=== PATIENT | male | born 1995 | race Caucasian/White ===

== ENCOUNTER 2016-09-21 19:12 | Emergency (ER) | payer OTHER ==
--- NOTE | ~2016-09-21 | CT2 ---
[facility] A Service of [facility] [place] RADIOLOGY TEXT RESULTS PATIENT: ARCHANA BRITO LOCATION: SED : [birth year] UNIT #: [id number] AGE: [address]: Danyelle Olmedo SEX: M ORDER DR: [id number] [address] [address] [id number] E MR#: [id number] Acc #: [id number] NAME: ARCHANA BRITO : 1995 SEX: M STUDY DATE/TIME: 09/21/2016 21:13 UNIT: SED ROOM: STUDY DESCRIPTION: CT Abd and Pelv W Cont Attending Physician: Danyelle Olmedo Pa-C Ordering Physician: Danyelle Olmedo Pa-C Primary Care Physician: Primary Care Physician No MEDICAL IMAGING REPORT This report is preliminary unless electronic signature is present. EXAM CT abdomen and pelvis with IV contrast HISTORY Low abdomen pain and testicular pain for 3 days. No injury. This CT exam was performed with one or more of the following radiation dose reduction techniques: automatic exposure control, adjustment of mA and/or kV according to patient size, and iterative reconstruction. FINDINGS CT abdomen and pelvis was performed with IV contrast. CT ABDOMEN: The liver, gallbladder, spleen, pancreas, right kidney, and adrenal glands are normal. There is a 2 mm nonobstructing stone in the upper pole of the left kidney. No hydronephrosis. No perinephric stranding. Normal caliber abdominal aorta. No bowel dilatation. CT PELVIS: Normal appendix. No free fluid. No adenopathy. No bowel dilatation. Urinary bladder is normal. IMPRESSION 1. No acute findings in the abdomen or pelvis. 2. No urinary obstruction or bowel obstruction. 3. A 2 mm nonobstructing stone in the left kidney. Dictated by... Clyde Diaz M.D. THIS IS AN ELECTRONICALLY VERIFIED REPORT [facility] A Service of [facility] [place] RADIOLOGY TEXT RESULTS PATIENT: ARCHANA BRITO LOCATION: SED : 93 UNIT #: [id number] AGE: [address]: Danyelle Olmedo SEX: M ORDER DR: Clyde Diaz M.D. at 09/21/2016 11:32 PM SCOTT/hussein TD: 09/21/2016 22:41 JOB #: [id number] MEDICAL IMAGING REPORT Page 1 of 1
--- NOTE | ~2016-09-21 | US113 ---
[facility]. [facility] A Service of [facility] [place] [facility] RADIOLOGY TEXT RESULTS PATIENT: ARCHANA BRITO LOCATION: SED : 93 UNIT #: [id number] AGE: [address]: Danyelle Olmedo SEX: M ORDER DR: [id number] [address] [address] [id number] E MR#: [id number] Acc #: [id number] NAME: ARCHANA BRITO : 1995 SEX: M STUDY DATE/TIME: 09/21/2016 21:06 UNIT: SED ROOM: STUDY DESCRIPTION: US Scrotal Duplex Complete Attending Physician: Danyelle Olmedo Pa-C Ordering Physician: Yariel Cullen M.D. Primary Care Physician: Primary Care Physician No MEDICAL IMAGING REPORT This report is preliminary unless electronic signature is present. EXAM Testicular ultrasound, 09/21/2016 HISTORY 21-year-old male with left testicular pain for 2 days. No specific injury. COMPARISON None. FINDINGS Real-time arevalo-scale and color Doppler imaging of the scrotum was performed. Both testicles are normal in size and echogenicity. No intratesticular or extratesticular masses. Normal vascular flow in both testicles. No evidence of torsion. Bilateral epididymis within normal limits. IMPRESSION Normal testicular ultrasound. Dictated by... Silvio Anaya M.D. THIS IS AN ELECTRONICALLY VERIFIED REPORT Silvio Anaya M.D. at 09/21/2016 10:56 PM ANIA/johnny TD: 09/21/2016 22:38 JOB #: [id number] MEDICAL IMAGING REPORT Page 1 of 1
[~2016-09-21 19:12] MED LIST: ATARAX PO; CILOXAN 0.3% O2.5 ML OD; DICLOFENAC PO; MEDROL; MEDROL PO; NO MEDICATIONS; PREDNISONE PO; TRIAMCINOLONE A15 G2 EXT
[2016-09-21 20:37] LABS: URINE SOURCE CLEAN CATCH
[2016-09-21 20:40] LABS: URINE APPEARANCE CLEAR; URINE BILIRUBIN NEG (NEG); URINE BLOOD NEG (NEG); URINE COLOR YELLOW; URINE GLUCOSE NEG (NORM); URINE KETONE NEG (NEG); URINE LEUKOCYTE ESTERASE NEG (NEG); URINE NITRATE NEG (NEG); URINE PROTEIN NEG (NEG); URINE SPECIFIC GRAVITY 1.015 (1.003-1.035)
[2016-09-21 20:41] LABS: BASOPHIL% 0.4 % (0-2.5); EOSINOPHIL# 0.2 X10e3 (0-0.7); EOSINOPHIL% 2.6 % (0.0-7.0); HEMATOCRIT 43.6 % (38.0-50.0); HEMOGLOBIN 14.8 gm/dL (13.0-16.0); LYMPHOCYTE# 3.3 X10e3 (1.0-3.5); LYMPHOCYTE% 35.5 % (17.0-45.0); MEAN CELL VOLUME 88.9 FL (83-96); MEAN CORPUSCULAR HEMOGLOBIN 30.3 PG (28-34); MEAN PLATELET VOLUME 8.1 FL (6.5-11.5); MICRO INDICATED? NO; MONOCYTE# 0.6 X10e3 (0-1.0); MONOCYTE% 6.2 % (3.0-12.0); NEUTROPHIL# 5.2 X10e3 (1.5-7.1); NEUTROPHIL% 55.3 % (40-75); PLATELET COUNT 263 X10e3 (140-420); RED BLOOD COUNT 4.91 X10e (3.90-5.60); RED CELL DISTRIBUTION WIDTH 13.2 % (11.0-15.5); WHITE BLOOD COUNT 9.4 X10e3 (4.0-10.5)
[2016-09-21 20:47] LABS: DIFF IND NO
[2016-09-21 21:02] LABS: BILIRUBIN, DIRECT 0.1 mg/dL (0.0-0.2); BILIRUBIN,INDIRECT 0.1 mg/dL (0.0-0.9); BILIRUBIN,TOTAL 0.2 mg/dL (0.2-2.0); BUN/CREATININE RATIO 18.88; CALCIUM SERUM 9.4 mg/dL (8.4-10.2); CREATININE SERUM 0.9 mg/dL (0.6-1.4); POTASSIUM 3.9 mmol/L (3.5-5.1); PROTEIN TOTAL SERUM 8.1 g/dL (6.0-8.3)
== END 2016-09-21 22:49 | disposition home or self-care (01) ==
LOC: SED 19:12
PROVIDERS: Physician Assistant
DX: R10.31 Right lower quadrant pain (principal); N50.812 Left testicular pain; N50.811 Right testicular pain
CPT/HCPCS: 74177; 80048; 80076; 81003; 82150; 83690; 85025; 93970; 96360; 99284; Q9967